=== PATIENT | female | born 1995 | race Caucasian/White ===

== ENCOUNTER 2019-04-04 14:14 | Emergency (ER) | payer SELFPAY ==
[~2019-04-04] VITALS: Ht 170.2 cm; Wt 57.6 kg
[2019-04-04 14:27] VITALS: BP 124/80
[2019-04-04] MEDS ORDERED: TDAP [DIPH/PERTUSSIS/TET] 0.5 ML VIAL IM ONE ×2 (14:51→15:00)
== END 2019-04-04 15:11 | disposition home or self-care (01) ==
LOC: ER 14:14
DX: S70.311A Abrasion, right thigh, initial encounter (principal); W54.0XXA Bitten by dog, initial encounter; Y93.89 Activity, other specified; Y92.89 Other specified places as the place of occurrence of the external cause; Y99.8 Other external cause status
CPT/HCPCS: 90715